=== PATIENT | female | born 2000 | race Two or more races ===

== ENCOUNTER 2025-04-25 07:25 | Emergency (ER) | payer OTHER ==
[~2025-04-25] VITALS: Ht 142.2 cm; Wt 37.6 kg
[2025-04-25 09:09] LABS: EOS # 0.09 (0.04-0.54); EOS % 1.8 % (0.7-7.0); HEMATOCRIT 35.7 % (34.1-44.9); HEMOGLOBIN 12.1 g/dL (11.2-15.7); LYMPH # 1.42 (1.18-3.74); LYMPH % 27.7 % (19.3-53.1); MEAN CORPUSCULAR HEMOGLOBIN 29.6 pg (25.6-32.2); MONO # 0.48 (0.24-0.82); MONO % 9.4 % (4.7-12.5); NEUT # 3.08 (1.56-6.13); NEUT % 59.9 % (34.0-71.1); PLATELET COUNT 283 K/uL (163-369); RED BLOOD COUNT 4.09 M/uL (3.93-5.22); RED CELL DISTRIBUTION WIDTH 12.4 % (11.6-14.4)
[2025-04-25 10:15] LABS: PH,URINE 6.5 (5.0-8.0); URINE APPEARANCE Clear; URINE BILIRRUBIN Negative (NEGATIVE); URINE BLOOD Negative; URINE COLOR Yellow; URINE GLUCOSE Negative (NEGATIVE); URINE KETONE Negative (NEGATIVE); URINE LEUKOCYTE Trace; URINE NITRATE Negative; URINE PROTEIN Negative (NEGATIVE)
[2025-04-25 10:19] LABS: URINE BACTERIA 1522.4 uL (0.0-1933); URINE EPITHELIAL CELLS 16.9 uL (0.0-38.8); URINE WBC 25.9 uL (0.0-23.2)
[2025-04-25 10:24] LABS: URINE RBC 1.4 uL (0.0-20.8)
[2025-04-25] MEDS ORDERED: AMOX1TAB5 PO (11:28)
[2025-04-25] MEDS ORDERED: PEPCID AC20 MG PO (11:28)
== END 2025-04-25 12:13 | disposition home or self-care (01) ==
LOC: ER 07:25
PROVIDERS: General Practice
DX: N93.9 Abnormal uterine and vaginal bleeding, unspecified (principal)